=== PATIENT | female | born 1935 | race Caucasian/White ===

== ENCOUNTER 2016-12-29 05:37 | Day surgery (SDC) | payer MEDICARE ==
[2016-12-29] VITALS (12 sets, daily range): BP systolic 130–177; BP diastolic 68–96; PULSE 68–102; RESP 14–20; O2SAT 94–98
[~2016-12-29] VITALS: Ht 154.9 cm; Wt 76.9 kg
[~2016-12-29 05:37] MED LIST: ALPR0.254 PO; AMLO5TAB2 PO; ASCO500C6 PO; ASPI-973 PO; CALC-952 PO; CARV6.252 PO; CHOL200047 PO; CYAN500 PO; LOSA50TA37 PO; Lactated Ringer's 1,000 ML IV ONE; OMEP20CA11 PO; PRAV20TA2 PO
[2016-12-29] MEDS ORDERED: fentaNYL-PF 50 mCg/mL 2 mL Inj ONE (05:38)
[2016-12-29] MEDS ORDERED: Ondansetron 2 mg/mL 2 mL Inj ONE (05:38)
[2016-12-29] MEDS ORDERED: Dexamethasone 4 mg/mL Inj ONE (05:38)
[2016-12-29] MEDS ORDERED: EPHEDrine/NS 5 mg/mL 5 mL Syringe ONE (05:38)
[2016-12-29] MEDS ORDERED: MetoCLOpramide 5 mg/mL 2 mL Inj ONE (05:38)
[2016-12-29] MEDS ORDERED: Propofol 10,000 mCg/mL 20 mL Inj ONE (05:38)
[2016-12-29] MEDS ORDERED: CeFAZolin Inj 2 GM in IV Premix 1 EACH IV ONE (06:00)
[2016-12-29] MEDS ORDERED: Vancomycin Inj 1,000 MG in IV Premix 1 EACH IV ONE (06:00)
[2016-12-29] MEDS ORDERED: Lactated Ringer's 1,000 ML IV ONE (06:20)
[2016-12-29] MEDS ORDERED: Bupivacaine Liposome 1.3% 20 mL Inj ONE (07:18)
[2016-12-29] MEDS ORDERED: Bupivacaine-MPF 0.25%/EPI 30 mL Inj INJ ONE (08:11)
[2016-12-29] MEDS ORDERED: Gentamicin 40 mg/mL 2 mL Inj IRRIGATION ONE (08:11)
[2016-12-29] MEDS ORDERED: Lactated Ringer's 1,000 ML IV SCH (08:18)
[2016-12-29] MEDS ORDERED: Lactated Ringer's 500 ML IV PRN (08:18)
--- NOTE | 2016-12-29 08:18 | PCM.HPANE ---
Patient Data Surgeon Admitting Provider: Attending Provider:All Dietz MD Primary Care Physician:Patric Parra MD Other Provider:CadeocSwatiSelma Anesthesia Reason for Visit Right Knee Arthritis RIGHT KNEE ARTHRITIS Ht/WT & BMI Height (Feet): 5 Height (Inches): 1.00 Weight (Kilograms): 76.900 Body Mass Index 32.00 Allergies Coded Allergies: Quinolones (Verified Allergy, Unknown, Rash, 07/10/09) simvastatin (Verified Allergy, Unknown, itching, 12/25/16) Past Anesthesia History Anesthesia History: Positive for:: Anesthesia Reactions (shaking after anes), Denies:: Abnormal Airway, Difficult Intubation Diabetes History Hx Diabetes?: No MRSA MRSA: No Medications Blood Thinner: Aspirin Hypertension Medication: Yes Home Meds Incl Beta Juan: Yes (COREG) Date Beta Juan Taken: Dec 29, 2016 Time Beta Juan Taken: 444 Reported Medications Cholecalciferol (Vitamin D3) (Vitamin D3)2,000 Unit Capsule2,000 Unit PO DAILY 12/25/16 Ascorbic Acid (Vitamin C)500 Mg Capsule.er500 Mg PO DAILY 12/25/16 Cyanocobalamin (Vitamin B12)500 Mcg Tablet1,000 Mcg PO DAILY 12/25/16 Pravastatin 20 Mg Mzmkbd48 Mg PO DAILY Ref 0 12/25/16 Omeprazole 20 Mg Capsule.dr20 Mg PO DAILY Ref 0 12/25/16 Losartan Potassium 50 Mg Ewruzn65 Mg PO BID 12/25/16 Carvedilol 6.25 Mg Tablet6.25 Mg PO BID Ref 0 12/25/16 Aspirin 81 Mg Gvdvja69 Mg PO DAILY Ref 0 12/25/16 Amlodipine 5 Mg Tablet5 Mg PO BID Ref 0 12/25/16 Alprazolam 0.25 Mg Tablet0.5 Tab PO DAILY PRN For Anxiety Ref 0 12/25/16 Discontinued Reported Medications Calcium Carbonate/Vitamin D3 (Calcium 500 mg Chewable Tablet)1 Each Tab.chew1 Each PO DAILY 12/25/16 MedroxyPROGESTERone (Provera/Cycrin)5 Mg Tab5 Mg PO DAILY Ref 0 02/12/09 Lisinopril-Expunged Drug, Do Not Renew! 20 Mg Mhezsd19 Mg PO Ref 0 02/12/09 Lansoprazole-Expunged Drug, Do Not Renew! 30 Mg Capsule.dr30 Mg PO AM Ref 0 02/12/09 History HEENT History: Positive for:: Cataracts (bilateral surgery) TMJ (grinds teeth, wears guard sometimes ) Denies:: Abnormal Airway Difficult Intubation Dysphagia Glaucoma Hearing Problem Sinus Problem Hx of Heart Problems?: Yes Cardiovascular History: Positive for:: Cardiac Surgery (cardiac stents x 4 in 2012) Hypertension Denies:: AICD Heart Murmur Irregular Heartbeat Pacemaker Peripheral Vascular Rheumatic Fever Thrombophlebitis Valvular Heart Disease (echo 2016 ef 60-65%) Hx of Respiratory Problem?: No Respiratory History: Denies:: Asthma COPD Emphysema Oxygen Administration Pneumonia Tuberculosis Use of C-PAP Machine Use of Inhalers / NEBS Hx Neurologic Problems?: No Neurological History: Denies:: CVA Headaches Multiple Sclerosis Parkinson's Disease Seizures TIA Hx of GI Problems?: Yes Gastrointestinal History: Positive for:: Gastroesphageal Reflux (hx of barretts esophagus) Heartburn Hiatal Hernia Denies:: Cirrhosis Other GI Pertinent History: hx of ulcerative colitis- ileostomy in place Hx of Problems?: No Genitourinary History: Denies:: Kidney Stones Urinary Tract Infection Female Hx: Denies:: Currently Problems with Breasts? Skin History: Denies:: History Skin Disorders? Pressure Ulcers Hx Musculoskeletal Problems?: Yes Musculoskeletal History: Positive for:: Musculoskeletal Trauma Osteoarthritis Denies:: Fibromyalgia Joint Replacement Systemic Lupus Hx of Psycho/Social Problems?: Yes Psycho Social History: Positive for:: Anxiety (alprazolam) Denies:: Hx Depression Hx Surgeries?: Yes (ileostomy, hysteroscopy, pepe cataracts, ) Hx Any Other Health Problems?: Yes Other History: Positive for:: Cancer (SCC top of hand) Thyroid Disease (on medication) History Blood Transfusions: Positive for:: Accept Blood Products? Blood Transfusions (pre ileostomy 1980) Denies:: Blood Transfuse Reaction Hx Diabetes: No Hx Alcohol Use: NoHx Substance Use: NoHave You Smoked inLast 12 mo: No Stop/Bang S-Snoring: Do You Snore Loudly: No T-Tired: feel tired, fatigued: No O-Obsered: Observed not breath: No P-Blood Pressure: treated: Yes B- Body Mass Index > 35 kg/m2: No A- Age over 50: Yes N- Neck Large Circumference: No G- Gender Male: No LIBERTY Total Score: 2 Risk Assessment Category Category 1A: Patient has history of documented sleep apnea, and HAS NOT received any narcotic, sedative or anesthesia administration during this stay. Category 1B: Patient has history of documented sleep apnea, and HAS received any narcotic , sedative or anesthesia administration during this stay Category 2: Patient has SUSPECTED Obstructive Sleep Apnea, and HAS received any narcotic , sedative or anesthesia administration during this stay. Category 3: Patient has SUSPECTED Obstructive Sleep Apnea and HAS NOT received narcotic, sedative or anesthesia administration during this stay. Category 4: Outpatient in Procedural Areas with known sleep apnea or who screen positive for High Risk via the STOP/BANG questionnaire. Exam Exam Vital Signs Vital Signs Date Time Temp Pulse Resp B/P Pulse Ox O2 Delivery O2 Flow Rate FiO2 12/29/16 06:11 36 68 16 177/78 98 Room Air General Appearance: Alert, Oriented X3, Cooperative, No Acute Distress HEENT/AIRWAY: MP 2, Neck Movement (FROM), Mouth Opening (3 FBMO) Lungs: Clear to Auscultation, Normal Air Movement Heart: Exam Unremarkable, Regular Rate/Rhythm, No Murmurs/Rubs/Gallops Additional Information Patient was very concerned about postoperative pain. I told her that I would give good IV pain medicine during the perioperative period, but she would likely have some pain during her recovery. She did not want to go home today and Dr. Dietz agreed with overnight stay (outpatient with bed). Dr. Dietz and I discussed a knee block, but decided that exparel would be a better alternative. Patient agreed to the plan and understood that it would be impossible not to feel pain at some point. She signed the consent for surgery and desired to proceed. Meds/Labs/Diagnostics Admission Meds Current Medications Vancomycin/0.9 % Sod Chloride 1000 mg/Premix 200 ml @ 133.333 mls/hr PREOP ONCE IV Last administered on 12/29/16 06:20; Start 12/29/16 at 06:00; Stop at 07:29 Lactated Ringer's (Lr) 1,000 ml @ ud STK-MED ONCE IV Last administered on 12/29 06:20; Start 12/29/16 at 06:20; Stop 12/29/16 at 06:21; Status DC Plan Impression Patient chart reviewed, patient interviewed and anesthestic plan with risks, benefits, and alternatives discussed, and informed consent obtained. NPO Status: 4/16/17 Jorge A Burr MD Dec 29, 2016 06:56
[2016-12-29] MEDS ORDERED: Atropine 0.4 mg/mL Inj IVPUSH PRN (08:20)
[2016-12-29] MEDS ORDERED: Dexamethasone 4 mg/mL Inj IVPUSH PRN (08:20)
[2016-12-29] MEDS ORDERED: Ondansetron 2 mg/mL 2 mL Inj IVPUSH PRN (08:20)
[2016-12-29] MEDS ORDERED: Phenylephrine 10,000 mCg/mL Inj IVPUSH PRN (08:20)
[2016-12-29] MEDS ORDERED: Labetalol 5 mg/mL 4 mL Inj IV PRN (08:20)
[2016-12-29] MEDS ORDERED: EPHEDrine Sulfate 50 mg/mL Inj IVPUSH PRN (08:20)
[2016-12-29] MEDS ORDERED: fentaNYL-PF 50 mCg/mL 2 mL Inj IVPUSH PRN (08:20)
[2016-12-29] MEDS ORDERED: HYDROmorphone 1 mg/mL Inj IVPUSH PRN (08:20)
[2016-12-29] MEDS ORDERED: Vancomycin Dose per Pharmacist XX ONE (08:45)
[2016-12-29] MEDS ORDERED: oxyCODONE-Acetamin 5-325 mg Tablet PO PRN (08:45)
[2016-12-29] MEDS ORDERED: Ketorolac 15 mg/mL Inj IVPUSH ONE (08:45)
--- NOTE | 2016-12-29 09:26 | DRSVH ---
PROCEDURE: X-RAY RIGHT KNEE, ONE OR TWO VIEWS ([id number]) INDICATIONS: check alignment TECHNIQUE: 3 view(s) of the knee acquired. COMPARISON: [facility], CR, XR KNEE ARTHRITIC SERIES RT, 08/06/2016, 8:56. FINDINGS: Bones: Patient is status post medial right knee joint hemiarthroplasty. Hardware components are in expected positions. Visualized bony structures are intact. Soft tissues: Overlying postoperative changes are noted. IMPRESSION: Normal alignment established after medial compartment right knee joint hemiarthroplasty. Dictated by: Mando Gomez M.D. on 12/29/2016 at 9:24 Approved by: Mando Gomez M.D. on 12/29/2016 at 9:24
--- NOTE | 2016-12-29 10:06 | NUR ---
Arrived on Unit Patient arrived on floor from PACU in stable condition. A&Ox3. VSS. Patient denies pain and nausea at this time. HemoVac clamped until 1400. Dressing CDI. Patient orientated to call light, bed, and phone. Patient repositioned by staff for comfort. Call light and tray table within reach. Will continue to monitor patient hourly.
--- NOTE | 2016-12-29 10:37 | OP ---
[address] [address] OPERATIVE REPORT PATIENT: ANG HAY : 1935 MR#: [id number] ADMIT: 12/29/2016 JOB ID: [id number] DATE OF SURGERY: 12/29/2016 PREOPERATIVE DIAGNOSIS(ES): Severe medial compartment osteoarthritis, right knee. POSTOPERATIVE DIAGNOSIS(ES): Severe medial compartment osteoarthritis, right knee. PROCEDURE: 1. Unicompartmental knee arthroplasty. 2. Diagnostic knee arthroscopy. 3. The appropriateness for partial versus total knee replacement. SURGEON: All Dietz MD HOTEL OR MOTEL CLEANING SUPERVISOR: Clarice Carter PA-C Hide And Skin Colerer required due to the major complexity of the operation. INDICATIONS: This woman has severe progressive osteoarthritis. Symptoms uncontrolled by conservative techniques. She elects to proceed with a unicompartmental knee arthroplasty. Understanding this, she accepts the potential for risks and complications which include but is not limited to, infection, thromboembolic, neurovascular events, as well as the potential for progressive arthritis in non-resurfaced compartments and implant failure. DESCRIPTION OF PROCEDURE: The patient was prepped and draped in usual sterile fashion. An anteromedial approach was made for the arthroscopy portal. An anteromedial portal was utilized. Advanced arthritis was noted in the medial compartment. Mild degenerative changes of the patellofemoral joint. There was no notable degenerative changes noted of the lateral compartment. The decision was then made to proceed with a unicompartmental knee replacement based on the arthroscopic findings. The arthroscope was removed from the knee. The knee was fully lavaged of fluid prior to removal of the trocar. An anteromedial approach was then made with an anteromedial arthrotomy. Patellar osteophyte was removed. The tibial guide was placed and a standard depth tibial cut was made of approximately 4 mm. The cut was completed with a sagittal saw. The bone fragment was removed and the spacer block was placed. The 9 mm spacer block fit with appropriate tension and alignment, and it was pinned and placed. Then, a distal femoral cut was made. The fragment was removed. This was then sized to a 4 chamfer block fixed in appropriate position. Rotation and drill holes and chamfer cuts were made. The tibia was sized to a D. Trial reduction was performed. An 8 mm polyethylene produced appropriate alignment, soft tissue tension and tracking. Wounds were irrigated with pressurized lavage. Pressurized cementation followed of the components. Excess cement was removed during the curing process. Final construct was assembled. The polyethylene was snapped securely into place. Marcaine with epi and Exparel mix was injected in all cut margins. Deep Hemovac drain was left. Deep closure with #2 Quill deep, followed by 2-0 Vicryl, 3-0, and a 4-0 intracuticular stitch. Sterile dressings were applied. The patient was returned to the recovery room in stable condition. She tolerated the procedure well. Standard postoperative plan recommended.
[2016-12-29] MEDS: hydrOXYzine Pamoate 25 mg Capsule PO PRN ×2 (10:57→14:52)
[2016-12-29] MEDS ORDERED: ALPRAZolam 0.5 mg Tablet PO PRN (11:05)
[2016-12-29] MEDS: HYDROcodone-APAP 5-325 mg Tablet PO PRN (14:53)
--- NOTE | 2016-12-29 15:34 | PCM.ANEP1 ---
Post Anesthesia Phase 1 PACU Phase 1 Assessment Vital Signs Vital Signs Date Time Temp Pulse Resp B/P Pulse Ox O2 Delivery O2 Flow Rate FiO2 12/29/16 14:09 36.6 76 18 147/85 98 Nasal Cannula 2.00 12/29/16 10:14 Supplement Oxygen 12/29/16 10:06 36.3 85 18 154/90 95 Nasal Cannula 2.00 12/29/16 09:45 94 14 152/76 94 Nasal Cannula 2 12/29/16 09:30 95 15 147/77 94 Nasal Cannula 2 12/29/16 09:20 36.5 95 15 142/79 95 Nasal Cannula 2 12/29/16 09:15 97 15 134/68 94 Nasal Cannula 2 12/29/16 09:10 97 16 139/76 94 Nasal Cannula 2 12/29/16 09:05 102 16 133/76 98 Simple Mask 8 12/29/16 09:00 36.7 94 16 130/68 98 Simple Mask 8 Anesthetic Administered: GA Level of Alertness: Awake, talking BISWAS's with Equal Strength: Yes Pain: No Pain Scale Score: 3 Nausea or Vomiting: No Oxygen Delivery: Simple Mask Lungs: Clear to Auscultation, Normal Air Movement Dermatome Level: Full Sensation Jorge A Burr MD Dec 29, 2016 15:34
--- NOTE | 2016-12-29 15:35 | PCM.ANEP2 ---
Post Anesthesia Evaluation ASA/CMS Post Anesthesia VS in Patient's Normal Range?: Yes Resp Stable; Airway Patent?: Yes CV Function & Hydration Stable: Yes Mental Status Recovered?: Yes Pain control Satisfactory?: Yes N/V Control Satisfactory?: Yes Jorge A Burr MD Dec 29, 2016 15:35
--- NOTE | 2016-12-29 15:52 | NUR ---
Evaluation completed. Please go to "Notes" then click on "Assessments and Notes" (bottom left corner of screen). Then select appropriate discipline tab on top of screen.
--- NOTE | 2016-12-30 04:17 | NUR ---
Drain hose was detached, noted when standing up at bedside . Removed drain and applied pressure dressing. Addendum: 12/30/16 at 0421 by NANCY TORRES RN Amended: Links added.
[2016-12-30 05:06] VITALS: BP 159/81; PULSE 73; RESP 18; O2SAT 99
--- NOTE | 2016-12-30 05:12 | NUR ---
Drain/ Activity Patient ambulating to bathroom SBA with FWW. Self care of Ileostomy. VSS no complaints of CP, SOB, nor abdominal discomfort. Second trip to Bathroom it became apparent that the drain had become detached. Able to remove remaining portion of drain and apply pressure dressing, no noted drainage at this time. Drain catheter intact. .
[2016-12-30] MEDS ORDERED: Vancomycin 1 Gm/200 mL NS Premix IV ONE (06:00)
[2016-12-30] MEDS ORDERED: Pantoprazole 20 mg ER24 Tablet PO SCH (06:30)
[2016-12-30] MEDS: HYDROcodone-APAP 5-325 mg Tablet PO PRN ×3 (09:12→18:13)
--- NOTE | 2016-12-30 09:58 | PCM.PNORTH ---
Subjective Date of Service: Dec 30, 2016 Visit Information: Reason for Visit Right Knee Arthritis Surgery/Surgery Date r medial uka 12/29/16 Post-Op Day # 1 Date of Admission: Hospital Day # Subjective Patient states she is having very little discomfort and rarely "needs a pain pill." She denies any difficulties with her ostomy or any gas pain. She States she got up with physical therapy yesterday and had great discomfort but states most of that has resolved today. She states she was very nauseated yesterday as well but denies any nausea today. Postop General: No Complaints, No Shortness of Breath, Good Appetite Pain Management: PO Objective Exam Objective Patient laying in bed Vital Signs and I/O Vital Sign - Last Date Time Temp Pulse Resp B/P Pulse Ox O2 Delivery O2 Flow Rate FiO2 12/30/16 09:37 Room Air 12/30/16 05:06 36.8 73 18 159/81 99 12/29/16 14:09 2.00 Intake and Output 12/29/16 12/29/16 12/30/16 Cumulative From/Thru 15:00 23:00 07:00 12/25/16 09:41 - 12/30/16 06:30 Intake Total 950 ml 800 ml 450 ml 2400 ml Output Total 50 ml 135 ml 1030 ml 1215 ml Balance 900 ml 665 ml -580 ml 1185 ml Intake Oral 800 ml 450 ml 1250 ml IV Total 950 ml 1150 ml Output Urine Total 100 ml 1000 ml 1100 ml Drainage Total 35 ml 30 ml 65 ml Estimated Blood Loss 50 ml 50 ml General Appearance: Alert, Oriented X3, Cooperative, No Acute Distress Extremities: Distal Pulses Palpable, Warm, No Compartment Syndrom Noted Postop Sensory Motor: Distal Motor Intact, Movement in Toes, Distal Sensation Intact, NVI Distally SURGICAL WOUND : Wound Location/Description Perioperative dressing clean dry and intact Drain Location Body Site: Knee Wound Drainage Type: Hemovac Activity: Ambulate with PT (WBAT with FWW) Assessment & Plan Impression POD#1 right medial UKA Problems: Plan Weightbearing: Weightbearing as tolerated with a walker DVT prophylaxis: Aspirin 81 mg twice a day 6 weeks Physical therapy for transfers, progressive ambulation, strengthening Wound care: Tomorrow, you may remove the perioperative dressings (ronnie bandage, cotton padding and gauze) leaving the steri-strips (the rectangular stickers over the incision) in place. You were provided an island dressing (a rectangular gauze pad with sticky edges around the outside). Please place this bandage over your incision ensuring the incision does not come into contact with the sticky edges of the bandage. Once you have put on your island dressing , pull on your compression stockings over the bandage. Wear your compression stockings on both legs until your follow up appointment. Analgesia: Take your oral pain medications as directed. You may begin tapering in a few days. Discharge plan: Discharge home today. Start outpatient physical therapy next week. Follow-up plan: In 2 weeks at [facility] with MARSHALL for wound check and at [address] Dietz with x-rays Clarice Carter PA-C Dec 30, 2016 09:58
--- NOTE | 2016-12-30 13:47 | NUR ---
Social Work - Initial Assessment: Data: EMR reviewed. Pt is a 81 y/o female who was admitted for right knee arthritis per H&P. Pt's insurance is Medicare and AARP Supplemental and PCP is Patric Parra MD. Pt does not have terminal supervisor care insurance or VA benefits. Pt has no history of HH or SNF services. SW met with Pt and explained role. Pt resides at home with her where she remains independent with use of a walker. Pt drives and does not use any DME. SW discussed DPOA/ advanced directive, SW confirmed with pt that this has been completed. Pt's to provide transport home at discharge. Pt will be discharged home with outpatient PT. Pt agreeable for SW to discuss care options with daughter. SW placed a call to daughter Cara to discuss further. SW provided phone number and plan on white board in room. No anticipated discharge needs. SW will continue to follow if needs arise. Assessment:Pt who is independent at baseline. Plan:Pt to discharge home when medically stable via POV. No anticipated discharge needs. SW will continue to follow if needs arise. ANGEL Jimenez
[2016-12-30 14:56] VITALS: BP_SYST 168; BP_SYST 95; BP_DIAS 55; BP_DIAS 89; PULSE 69; PULSE 80; RESP 20; O2SAT 95; O2SAT 96
--- NOTE | 2016-12-30 15:01 | NUR ---
Social Work-discharge: Data:EMR Reviewed. Pt is on day 1 of hospitalization for right knee per H&P. Pt is medically stable for discharge. Pt's daughter would like to speak with MARSHALL Oneil. PA is willing to speak with daughter, number provided. Daughter and pt agreeable to plan. Clarice has completed discharge. Daughter requesting medication for nausea and requests PA provide this. Daughter states preferred pharmacy is [facility] in [place]. MARSHALL Oneil to call in RX to this pharmacy. PT worked with pt and pt ambulating 250ft with Fww, recommending home with outpt PT services. Pt has fww in room to take home with her. SW updated bedside RN. All updated and agreeable to plan. Assessment:Pt who would benefit from outpt PT. Plan:Pt to discharge home today via POV. Outpt PT services have been set up and Pt has been cleared by PT for home with outpt Pt. RX called into [facility] in [place]. All updated and agreeable to plan. ANGEL Lyman
--- NOTE | 2016-12-30 15:31 | PCM.DIOPOR ---
OP Ortho Discharge Instruction Dates of Hospitalization Date of Discharge: Dec 30, 2016 Providers Admitting Physician: Primary Care Physician: Patric Parra MD Attending Physician: All Dietz MD Diagnosis at Time of Discharge Post operative diagnosis s/p right medial unicompartmental knee arthroplasty Diet Discharge Diet: No restrictions Activity Activity-General: No restrictions, Be up and about, Elevate & ice extremity, Ice incision 3-5 time/day for 20min Right Lower Extremity: Weight Bearing as tolerated Discharge Assist Device: Front Wheeled Walker Dressing and Incisional Care Dressing Care: Allow Steri Stripes to fall off Hygiene: May shower (With dressings covered) Additional Instructions Discharge Instructions Weightbearing: Weightbearing as tolerated with a walker DVT prophylaxis: Aspirin 81 mg twice a day 6 weeks Wound care: Tomorrow, you may remove the perioperative dressings (ronnie bandage, cotton padding and gauze) leaving the steri-strips (the rectangular stickers over the incision) in place. You were provided an island dressing (a rectangular gauze pad with sticky edges around the outside). Please place this bandage over your incision ensuring the incision does not come into contact with the sticky edges of the bandage. Once you have put on your island dressing , pull on your compression stockings over the bandage. Wear your compression stockings on both legs until your follow up appointment. Analgesia: Take your oral pain medications as directed. You may begin tapering in a few days. I have prescribed a medication to help you with your nausea and sent it to your pharmacy. Discharge plan: Discharge home today. Start outpatient physical therapy next week. Follow-up plan: In 2 weeks at [facility] with MARSAHLL for wound check and at [address] Dietz with x-rays Clarice Carter PA-C Dec 30, 2016 15:31
--- NOTE | 2016-12-30 19:27 | NUR ---
Discharge Pt left with family in stable condition with all belongings at 1830, IV d/c'd, prescription given, pain meds given prior to discharge, Nausea med sent to pharmacy. teaching done on dressing change with pt and daughter, daughter stated she would do it. follow up appointments already scheduled.
== END 2016-12-30 18:30 | disposition home or self-care (01) ==
LOC: SAS 05:37 → OSC 09:29 → SAS 12-30 18:30
PROVIDERS: ATTEND Orthopaedic Surgery
DX: M17.11 Unilateral primary osteoarthritis, right knee (principal); I10 Essential (primary) hypertension; K58.9 Irritable bowel syndrome, unspecified; K22.70 Barrett's esophagus without dysplasia; I25.10 Atherosclerotic heart disease of native coronary artery without angina pectoris; E78.5 Hyperlipidemia, unspecified; Z95.5 Presence of coronary angioplasty implant and graft; Z79.82 Long term (current) use of aspirin
CPT/HCPCS: 27446; 73560; 97110; 97116; 97161; C1713; C1776; G8978; G8979; J0690; J1100; J1580; J1885; J2270; J2405; J2765; J3010; J3370; J7120; Q0177

== ENCOUNTER 2017-06-09 07:23 | Emergency (ER) | payer MEDICARE ==
[~2017-06-09] VITALS: Ht 154.9 cm; Wt 72.7 kg
[~2017-06-09 07:23] MED LIST changes: -CALC-952 PO; -Lactated Ringer's 1,000 ML IV ONE
[2017-06-09 07:27] VITALS: BP 178/108; PULSE 70; RESP 15; O2SAT 99
--- NOTE | 2017-06-09 07:44 | ED.REPORT ---
HPI- Female Date of Service Jun 09, 2017 ED Provider: Emigdio Gore MD Patient is an 82 year old female with a hx of CAD and HTN who presents to the ED complaining of perineal burning since she stopped taking cefuroxime 4 days ago for an episode of similar symptoms. Pt reports that she was seen a few weeks ago at [facility] for perineal burning/discomfort and was diagnosed with a UTI. She was put on cefuroxime which improved her symptoms but never completely resolved them. She was then seen for a follow up appointment with Dr. Parra and told that her urine was no longer infected. Since, she has noticed a flare-up of the same symptoms. Associated symptoms include shaking. She denies fever, vomiting, rash, or any other symptoms. Pt also complains of chest pains onset last night that have since resolved. She reports that she can no longer pass gas and has to belch to relieve gas, so she drank a soda and her chest pain resolved. Nursing Notes Stated Complaint: ABD PAIN,SLIGHT CHEST PAIN Chief Complaint: Female Abdominal Pain Nursing Notes Reviewed: Yes Allergies: Coded Allergies: Quinolones (Verified Allergy, Unknown, Rash, 07/10/09) simvastatin (Verified Allergy, Unknown, itching, 12/25/16) Scheduled Amlodipine (Amlodipine) 5 Mg Tablet 5 MG PO BID Ascorbic Acid (Vitamin C) 500 Mg Capsule.er 500 MG PO DAILY Aspirin (Aspirin) 81 Mg Tablet 81 MG PO DAILY Carvedilol (Carvedilol) 6.25 Mg Tablet 6.25 MG PO BID Cholecalciferol (Vitamin D3) (Vitamin D3) 2,000 Unit Capsule 2,000 UNIT PO DAILY Cyanocobalamin (Vitamin B12) 500 Mcg Tablet 1,000 MCG PO DAILY Losartan Potassium (Losartan Potassium) 50 Mg Tablet 50 MG PO BID Omeprazole (Omeprazole) 20 Mg Capsule.dr 20 MG PO DAILY Pravastatin (Pravastatin) 20 Mg Tablet 20 MG PO DAILY Scheduled PRN Alprazolam (Alprazolam) 0.25 Mg Tablet 0.5 TAB PO DAILY PRN PRN For Anxiety Phenazopyridine (Phenazopyridine) 200 Mg Tablet 200 MG PO TID PRN PRN For Pain Take as needed for painful urination General Time Seen by MD: 07:39 Chief Complaint Perineal pain Hx Obtained From: Patient Arrived By: Walk-in Sudden in Onset?: Yes Onset Occurred: 2 days ago Symptom Duration: Since onset Location: : Perineum Quality: Painful Recent Healthcare: Recent doctor visit Past Medical History Past Medical History Notes: Solid [employer] Dr. Champion Past Medical History TMJ disease CAD HTN hiatal hernia GERD and Barretts esophagus Spinal stenosis anciety SCC Denies: Diabetes mellitus, Stroke Reports: Thyroid disease Past Surgical History ileostomy hysteroscopy cardiac stents x4 Reports: Cataract surgery Social History Lives in [place] Other Social History: Ambulatory Status Independent Review of Systems Review of Systems Note: +perineal discomfort Constitutional: Denies: Fever GI: Denies: Vomiting Skin: Denies Rash Neurologic: Reports: Shaking Complete sys rev & neg: except as marked. Cardiovascular: Reports: Chest pain Physical Exam Initial Vital Signs Vital Signs (First) Date Time Temp Pulse Resp B/P Pulse Ox O2 Delivery O2 Flow Rate FiO2 06/09/17 07:27 36 70 15 178/108 99 Room Air Initial VS: Reviewed, Vital signs abnormal Head / Eyes: Atraumatic, Normocephalic Neck: Full range of motion Respiratory: No respiratory distress Skin: Warm, Dry Neurologic: Alert, Oriented, Nonfocal Psychiatric: Mood/affect normal, Behavior normal, Normal thought content Female Genitourinary: Mattress Packer present, External genitalia NL Normal labia. Normal mucosa. no irritation or discharge. General/Constitutional: Awake, Alert Rectum / Perineum: Atraumatic No skin rash or irritation Anus non-patent Interpretation & Diagnostics Lab Results Interpretation Result Diagram: 06/09/17 0745 06/09/17 0745 Test 06/09/17 07:45 06/09/17 08:51 White Blood Count 8.1th/mm3 (3.8-10.1) Red Blood Count 4.68mil/mm3 (3.90-5.20) Hemoglobin 14.3g/dL (12.0-15.6) Hematocrit 41.7% (35.0-46.0) Mean Corpuscular Volume 89.1fL (81-100) Mean Corpuscular Hemoglobin 30.6pg (27.0-35.0) Mean Corpuscular Hemoglobin Concent 34.3% (32.0-37.0) Red Cell Distribution Width 13.4% (12.3-15.4) Platelet Count 220bil/L (150-400) Neutrophils (%) (Auto) 66.7% (40-74) Lymphocytes (%) (Auto) 22.0% (14-46) Monocytes (%) (Auto) 9.1% (4-12) Eosinophils (%) (Auto) 1.4% (0-5) Basophils (%) (Auto) 0.4% (0-3) Sodium Level 129mEq/L (134-144) Potassium Level 4.2mEq/L (3.5-5.2) Chloride Level 91mEq/L (97-108) Carbon Dioxide Level 18mmol/L (18-29) Blood Urea Nitrogen 12mg/dL (8-27) Creatinine 0.86mg/dL (0.57-1.00) Estimat Glomerular Filtration Rate 91mL/min (>59) Glucose Level 145mg/dL (60-99) Calcium Level 9.5mg/dL (8.5-10.1) Magnesium Level 1.8mg/dL (1.6-2.6) Total Bilirubin 0.6mg/dL (0.0-1.2) Aspartate Amino Transf (AST/SGOT) 18U/L (0-50) Alanine Aminotransferase (ALT/SGPT) 11U/L (0-32) Alkaline Phosphatase 106U/L (25-165) Troponin T 0.010ug/L (0.0-0.011) Total Protein 7.9g/dL (6.4-8.4) Albumin 4.5g/dL (3.4-5.0) Lipase 16U/L (13-60) Hold Graham Top Tube Received (Received) Urine Color Straw (YELLOW) Urine Appearance Hazy (CLEAR,HAZY) Urine pH 6.5 (5.0-8.0) Urine Specific [place] 1.005 (1.003-1.035) Urine Protein Negativemg/dL (NEG,TRACE) Urine Glucose (UA) Negativemg/dL (NEGATIVE) Urine Ketones Negativemg/dL (NEGATIVE) Urine Occult Blood Moderate (NEGATIVE) Urine Nitrite Negative (NEGATIVE) Urine Bilirubin Negative (NEGATIVE) Urine Urobilinogen Normalmg/dL (NORMAL) Urine Leukocyte Esterase Moderate (NEGATIVE) Urine RBC 3-10/hpf (0-2) Urine WBC 6-10/hpf (0-5) Urine Epithelial Cells Occasional/hpf (NONE-MOD) Urine Crystals None seen (NONE SEEN) Urine Bacteria None/hpf (NONE-FEW) Urine Hyaline Casts None/lpf (NONE) Urine Granular Casts None seen (NONE SEEN) Urine Waxy Casts None seen (NONE SEEN) Urine Red Blood Cell Casts None seen (NONE SEEN) Urine White Blood Cell Casts None seen (NONE SEEN) Urine Mucus None seen (None Seen) Urine Trichomonas None seen (NONE SEEN) Urine Yeast None (NONE SEEN) Urinalysis Comment None Urine Culture Reflexed Indicated ECG Interpretation ECG Interpretation: Sinus rate 64 Abnormal R-wave progression, early transition Time: 08:04 Interpreted by: ED physician Re-Eval/Medical Decision Med Decision/Clinical Course Though she reported some chest pain during the night, her symptoms resolved with belching as they have commonly done in the past. EKG and troponin values are unremarkable and I do not believe that further cardiac workup is necessary at the moment. Re-Evaluation/Progress : Time of Eval: 10:10 Re-Evaluation/Progress Note: Rechecked pt. Discussed UA results, consult with Dr. Parra, plan for meds, and plan for f/u with [facility] in the next few days. Patient understands and agrees with plan. All questions addressed at this time. Consultation : Referral / Consult Name: Patric Parra MD Consulted With: Primary care physician Call Returned at: 08:54 Note: Discussed pt's case. Counseled Regarding: Diagnosis, Lab results, Need for follow-up, When/why to return to ED Discharge & Departure Impression: Primary Impression: Dysuria Additional Impression: Chest pain Chest pain type: unspecified Qualified Code: R07.9 - Chest pain, unspecified Disposition: Home Discharge Condition All VS Reviewed: Yes Condition: Stable Patient Instructions: Chest Pain (ED), Dysuria (ED) Additional Instructions: Thank you for entrusting us with your care. Your urine does not appear to be infected. I have prescribed you a medication to help with bladder discomfort due to irritation. Take this 3-4 times a day. It will make your urine a bright, fluorescent orange. Ask the pharmacist if you can crush these medications if needed. We also performed an EKG due to your reported chest pain. Your EKG, lab results , and examination are reassuring. We did not find a dangerous cause for your chest pain at this time. Call Dr. Parra to schedule a follow up appointment within the next few days. He will help determine if you need to follow up with a urologist. Return to the emergency department if you experience any new or concerning symptoms. Referrals: Patric Parra MD (PCP) [place] Attestation Portions of this note were transcribed by Cande Sales. I, Dr. Gore personally performed the history, physical exam and medical decision-making; I reviewed and confirmed the accuracy of the information in the transcribed note. Signed by: Chapito Meza, 06/09/17 copies to: Patric Parra MD, Kirk H MD Jun 09, 2017 07:44 [employer] Jun 09, 2017 08:46
[2017-06-09 07:53] LABS: BASOPHILS % (AUTO) 0.4 % (0-3); EOSINOPHILS % (AUTO) 1.4 % (0-5); MONOCYTES % (AUTO) 9.1 % (4-12); Mean Corpuscular Hemoglobin 30.6 pg (27.0-35.0); Mean Corpuscular Volume 89.1 fL (81-100); NEUTROPHILS % (AUTO) 66.7 % (40-74); Platelet Count 220 bil/L (150-400)
[2017-06-09 09:09] LABS: Magnesium 1.8 mg/dL (1.6-2.6); TROPONIN T 0.01 ug/L (0.0-0.011)
[2017-06-09 09:17] LABS: APPEARANCE,URINE HAZY (CLEAR,HAZY); COLOR,URINE STRAW (YELLOW); OCCULT BLOOD,URINE MODERATE (NEGATIVE); PH,URINE 6.5 (5.0-8.0); UROBILINOGEN,URINE NORMAL (NORMAL)
[2017-06-09 09:43] VITALS: BP 153/71; PULSE 65; RESP 15; O2SAT 98
[2017-06-09] MEDS ORDERED: Phenazopyridine 97.5 mg Tablet PO ONE (09:50)
[2017-06-09 10:15] VITALS: BP 178/70; PULSE 64; RESP 18; O2SAT 98
[2017-06-09 10:30] VITALS: BP 159/67; PULSE 63; RESP 18; O2SAT 97
[2017-06-09] MEDS ORDERED: PHEN-777 PO (10:33)
[2017-06-09 11:12] VITALS: BP 159/67; PULSE 63; RESP 18; O2SAT 97
== END 2017-06-09 11:15 | disposition home or self-care (01) ==
LOC: SED 07:23
DX: R30.0 Dysuria (principal); R07.9 Chest pain, unspecified; R25.1 Tremor, unspecified; I11.9 Hypertensive heart disease without heart failure; E11.59 Type 2 diabetes mellitus with other circulatory complications; I25.10 Atherosclerotic heart disease of native coronary artery without angina pectoris; K21.9 Gastro-esophageal reflux disease without esophagitis; F41.9 Anxiety disorder, unspecified; Z86.73 Personal history of transient ischemic attack (TIA), and cerebral infarction without residual deficits; Z87.440 Personal history of urinary (tract) infections; Z95.5 Presence of coronary angioplasty implant and graft; Z90.710 Acquired absence of both cervix and uterus; Z98.890 Other specified postprocedural states; Z79.82 Long term (current) use of aspirin; Z88.1 Allergy status to other antibiotic agents; Z88.8 Allergy status to other drugs, medicaments and biological substances